=== PATIENT | male | born 1995 | race Caucasian/White ===

== ENCOUNTER 2023-10-16 08:59 | Emergency (ER) | payer BC, SELFPAY ==
[2023-10-16] MEDS ORDERED: predniSONE 20 MG TAB ONE (09:12)
[2023-10-16] MEDS ORDERED: diphenhydrAMINE 25 MG CAP ONE (13:20)
== END 2023-10-16 13:42 | disposition home or self-care (01) ==
LOC: ERS 08:59
DX: J45.901 Unspecified asthma with (acute) exacerbation (principal); L25.9 Unspecified contact dermatitis, unspecified cause; Z79.899 Other long term (current) drug therapy
CPT/HCPCS: 71045; J7512